=== PATIENT | female | born 1980 | race Caucasian/White ===

== ENCOUNTER 2020-08-09 14:33 | Outpatient (REF) | payer OTHER, SELFPAY ==
[2020-08-09 17:21] LABS: COVID-19 Test Negative (Negative)
== END 2020-08-09 14:34 | disposition home or self-care (01) ==
LOC: HO.LAB 14:33
PROVIDERS: Visit Provider Internal Medicine
DX: Z20.828 Contact with and (suspected) exposure to other viral communicable diseases (principal)
CPT/HCPCS: 87635

== ENCOUNTER 2020-08-22 06:33 | Outpatient (REF) | payer BC, SELFPAY ==
[2020-08-22 06:56] LABS: COVID-19 Test Negative (Negative)
== END 2020-08-22 06:34 | disposition home or self-care (01) ==
LOC: HO.LAB 06:33
PROVIDERS: Visit Provider Internal Medicine
DX: Z20.828 Contact with and (suspected) exposure to other viral communicable diseases (principal)
CPT/HCPCS: 87635; C9803

== ENCOUNTER → 2021-04-01 10:21 | Outpatient (BNVA) | payer BC, SELFPAY | PROVIDERS: Visit Provider Surgery Vascular Surgery ==

== ENCOUNTER 2021-04-09 07:50 | Outpatient (REF) | payer BC, SELFPAY ==
--- NOTE | ~2021-04-09 | US_ITS ---
EXAMINATION: US VENOUS BILATERAL LOWER EXTREMITIES (REFLUX EXAM) CLINICAL INDICATION: Leg pain and varicose veins. Status post ablation 10 years ago. COMPARISON: None TECHNIQUE: Color flow triplex imaging and compression Doppler was performed to evaluate both the deep and the superficial systems bilaterally. To evaluate the superficial system, the examination was performed in the upright position. Color-flow Doppler ultrasound and compression ultrasound were utilized. In addition, maneuvers were utilized to demonstrate reflux. FINDINGS: 1. DEEP VENOUS ULTRASOUND OF THE RIGHT LOWER EXTREMITY: Respiratory variation, normal compression and augmented flow are noted in the right common femoral vein as well as the right popliteal vein and there is no evidence of deep venous thrombosis at these locations. Reflux is noted in the right common femoral vein with greater than 3 seconds of reflux. Reflux is also present in the popliteal vein for 2.1 seconds. There is no evidence of a Quijano's cyst. 2. SUPERFICIAL ULTRASOUND WITH DOPPLER OF RIGHT LOWER EXTREMITY: The right great saphenous vein at the saphenofemoral junction measures 1.0 mm. The great saphenous vein is not seen again. At the level of the where measurements are as follows: at the knee 6 mm, [id number] 8 mm, midcalf 3 mm and at the ankle measures 2 mm. There is no reflux demonstrated in the right great saphenous vein. Duplicated Right Great Saphenous Vein: None The right small saphenous vein measures 10 mm and and demonstrates reflux of 1.3 seconds Accessory Vein of Giacomini: Yes, 5 mm in diameter without reflux Incompetent Perforators: None. There is a nonrefluxing 2 mm mid calf python architect Varices Present: Varicosities are present measuring up to 4 mm in size with reflux times of over 3 seconds 3. DEEP VENOUS ULTRASOUND OF THE LEFT LOWER EXTREMITY: Respiratory variation, normal compression and augmented flow are noted in the left common femoral vein as well as the left popliteal vein and there is no evidence of deep venous thrombosis at these locations. There is no evidence of reflux in the deep system in either the common femoral vein or the popliteal vein. There is no evidence of a Quijano's cyst. 4. SUPERFICIAL ULTRASOUND WITH DOPPLER OF LEFT LOWER EXTREMITY: Left great saphenous vein at the saphenofemoral junction measures 6 mm, at the proximal thigh 4 mm. The great saphenous vein is not seen below this level. There is no reflux demonstrated in the remaining left great saphenous vein from the thigh to the junction. Duplicated Left Great Saphenous Vein: There is a 5 mm lateral accessory saphenous that demonstrates 1.6 seconds of reflux The left small saphenous vein measures 3 mm and shows no reflux. Accessory Vein of Giacomini: None Incompetent Perforators: None. Varices Present: None US/US venous duplex LE BI IMPRESSION: 1. Reflux is present in the deep venous system on the right both common femoral as well as the popliteal vein as described above 2. Status post bilateral great saphenous ablations. Residual saphenous vein is noted on the right from the knee level downwards which demonstrates gross reflux. 3. Junctional reflux in the right small saphenous vein with associated refluxing varices
== END 2021-04-09 07:51 | disposition home or self-care (01) ==
LOC: HO.US 07:50
PROVIDERS: PCP Nurse Practitioner Adult Health; Visit Provider Surgery Vascular Surgery
DX: I83.893 Varicose veins of bilateral lower extremities with other complications (principal)
CPT/HCPCS: 93970

== ENCOUNTER → 2021-04-15 13:42 | Outpatient (BNVA) | payer BC, SELFPAY | PROVIDERS: PCP Nurse Practitioner Adult Health; Visit Provider Surgery Vascular Surgery ==

== ENCOUNTER → 2021-05-02 10:38 | Outpatient (BNVA) | payer BC, SELFPAY | PROVIDERS: PCP Nurse Practitioner Adult Health; Visit Provider Surgery Vascular Surgery | DX: I83.11 Varicose veins of right lower extremity with inflammation (principal) | CPT/HCPCS: 36482 ==

== ENCOUNTER 2021-05-05 12:25 | Outpatient (REF) | payer BC, SELFPAY ==
--- NOTE | ~2021-05-05 | US_ITS ---
EXAMINATION: US VENOUS ULTRASOUND WITH DOPPLER LOWER EXTREMITY, RIGHT CLINICAL INFORMATION: Post venous procedure COMPARISON: None TECHNIQUE: Ultrasound of the deep veins is performed from the hip to the calf with compression sonography and color and pulse Doppler assessment. Spectral analysis with color-flow imaging is performed. FINDINGS: There is normal venous compression and respiratory variation and augmented flow in the deep veins. The visualized common femoral vein, superficial femoral vein, profunda femoral vein, popliteal vein, and the trifurcation region shows no evidence of deep venous thrombosis. There are postprocedure changes to the greater saphenous vein with echogenic material extending 2 cm from the saphenofemoral junction. The greater saphenous vein is occluded in the thigh and proximal calf. US/US venous duplex LE RT IMPRESSION: No DVT demonstrated in the right lower extremity. Postprocedural changes to the greater saphenous vein.
== END 2021-05-05 12:26 | disposition home or self-care (01) ==
LOC: HO.US 12:25
PROVIDERS: Visit Provider Surgery Vascular Surgery
DX: M79.604 Pain in right leg (principal)
CPT/HCPCS: 93971

== ENCOUNTER → 2021-05-15 09:31 | Outpatient (BNVA) | payer BC, SELFPAY | PROVIDERS: PCP Nurse Practitioner Adult Health; Visit Provider Surgery Vascular Surgery ==

== ENCOUNTER → 2021-06-03 10:24 | Outpatient (BNVA) | payer BC, SELFPAY | PROVIDERS: PCP Nurse Practitioner Adult Health; Referring Provider Nurse Practitioner Adult Health; Visit Provider Surgery Vascular Surgery ==

== ENCOUNTER → 2021-08-28 09:04 | Outpatient (BNVA) | payer BC, SELFPAY | PROVIDERS: PCP Nurse Practitioner Adult Health; Visit Provider Surgery Vascular Surgery ==

== ENCOUNTER → 2021-10-03 12:31 | Outpatient (BNVA) | payer BC, SELFPAY | PROVIDERS: PCP Nurse Practitioner Adult Health; Visit Provider Surgery Vascular Surgery | DX: I83.11 Varicose veins of right lower extremity with inflammation (principal) | CPT/HCPCS: 37765 ==

== ENCOUNTER → 2021-10-16 13:09 | Outpatient (BNVA) | payer BC, SELFPAY | PROVIDERS: PCP Nurse Practitioner Adult Health; Visit Provider Surgery Vascular Surgery ==

== ENCOUNTER 2022-07-08 07:55 | Outpatient (REF) | payer BC, SELFPAY ==
--- NOTE | ~2022-07-08 | US_ITS ---
EXAMINATION: US LOWER EXTREMITY (REFLUX EXAM), RIGHT CLINICAL INDICATION: Chronic venous insufficiency with varicose veins, status post prior ablation of the right great saphenous vein COMPARISON: Ultrasound from 05/05/2021 TECHNIQUE: Color flow triplex imaging and compression Doppler was performed to evaluate both the deep and the superficial systems of the right lower extremity. To evaluate the superficial system, the examination was performed in the upright position. Color-flow Doppler ultrasound and compression ultrasound were utilized. In addition, maneuvers were utilized to demonstrate reflux. FINDINGS: 1. DEEP VENOUS DOPPLER ULTRASOUND: Common Femoral Vein: Compressible, normal respiratory variation and augmented flow. Femoral Vein: Compressible, normal color flow and augmentation. Popliteal Vein: Compressible, normal augmentation. Deep Reflux: There is reflux in the mid superficial femoral vein measuring 2596 ms and within the popliteal vein measuring 1564 ms There is no evidence of a Quijano's cyst. 2. SUPERFICIAL VENOUS DOPPLER ULTRASOUND: GREAT SAPHENOUS VEIN: Saphenofemoral Junction: 0.8 cm; Reflux: 0 ms Proximal Thigh: 0.6 cm; Reflux: 0 ms Mid Thigh: Not visualized Above Knee: Not visualized At Knee: Not visualized Below Knee: 0.3 cm; Reflux: 3044 ms Mid Calf: 0.2 cm; Reflux: 0 ms Ankle: 0.2 cm; Reflux: 0 ms DUPLICATED MEDIAL GREAT SAPHENOUS VEIN: Diameter: None Imaged Reflux: NA DUPLICATED LATERAL GREAT SAPHENOUS VEIN: Diameter: None Imaged Reflux: NA SMALL SAPHENOUS VEIN: Proximal: 0.9 cm; Reflux: 2136 ms Distal: 0.2 cm; Reflux: 2812 ms VEIN OF GIACOMINI: None Imaged. PERFORATORS: Location: None Imaged Size: NA Reflux: NA VARICOSITIES: Location: Varicose vein arising from the great saphenous vein remnant in the proximal thigh which recanalizes into the great saphenous vein in the proximal calf Size: 0.4 cm Reflux: 7810-1008 ms US/US venous duplex LE RT IMPRESSION: Status post ablation with persistent closure of the great saphenous vein through the thigh. Large varicose vein is seen arising from the great saphenous vein remnant in the proximal thigh and extending throughout the thigh and into the calf. Severe reflux in the right small saphenous vein Moderate to severe deep venous reflux within the right superficial femoral vein and popliteal vein
== END 2022-07-08 07:56 | disposition home or self-care (01) ==
LOC: HO.US 07:55
PROVIDERS: Visit Provider Surgery Vascular Surgery
DX: I83.11 Varicose veins of right lower extremity with inflammation (principal)
CPT/HCPCS: 93971

== ENCOUNTER → 2022-11-13 10:26 | Outpatient (BNVA) | payer BC, SELFPAY | PROVIDERS: PCP Family Medicine; Visit Provider Surgery Vascular Surgery | DX: I83.11 Varicose veins of right lower extremity with inflammation (principal) | CPT/HCPCS: 36475 ==

== ENCOUNTER 2024-02-15 09:07 | Outpatient (AMB) | payer BC, SELFPAY ==
--- NOTE | 2024-02-15 09:10 | MHC.OFFVIS ---
Intake Visit Reasons: Right leg VV, s/p 11/13/22 right ssv rfa Intake Note: follow up Right LE VV s/p Right SSV RFA 11/13/23 (was not successful) Pt has some new large VV on her calf that is itching and causing swelling and discoloration. Pt states it's progressively gotten worse since last year. Accompanied by: Self / Same As Patient Allergies No Known Allergies Allergy (Verified 02/15/24 09:15) HPI HPI Right leg VV, s/p 11/13/22 right ssv rfa: Details: Very pleasant 44-year-old female presents for routine follow-up regarding right lower extremity varicose veins. She did have an attempted ablation at the right small saphenous vein. Unfortunately the vein at that time had gone into spasm. At the current time it continues to be a source of pain and discomfort for her. She now presents for routine follow-up. [facility] Medical History Varicose vein of leg Social History Patient Tobacco Use Status: Never used Tobacco Review of Systems Const Reports as per HPI ENT Reports no additional complaints Card Denies chest pain, Denies chest pain at rest and Denies chest pain with activity Resp Denies chest congestion and Denies cough GI Reports no additional complaints Musc Details: pain over varicosities, aching of lower extremities, swelling, cramping, heaviness and tiredness, itching Denies abnormal gait Skin/Breast Reports pruritus and Denies wounds Neuro Reports no additional complaints and Denies abnormal gait Psych Denies no additional complaints Physical Exam Const General: cooperative, healthy appearing and comfortable Orientation/consciousness: oriented to person, oriented to place and oriented to time Neck Carotids: no bruits Chest Chest palpation & inspection: normal inspection of the chest and normal palpation of entire chest wall Resp Effort & Inspection: normal respiratory effort and able to speak in complete sentences Cardio Rate: regular rate Heart sounds: S1 normal heart sound present and S2 normal heart sound present Peripheral pulses: Peripheral pulses 2+ throughout GI Inspection: Yes normal to inspection Skin Other: +2 edema, large rope-like varicosities greater than 4 mm right calf CEAP Classification C4 - skin color changes Ep - Etiology Primary As - superficial veins P - reflux General skin exam: dry skin Neuro General: oriented to person, oriented to place and oriented to time Extrem Right lower extremity: full ROM, normal capillary refill and edema Left lower extremity: full ROM, normal capillary refill and edema Psych Mental Status: mental status grossly normal Results Reviewed Results Reviewed: Brief summary of venous insufficiency testing is as follows: right great saphenous vein: negative right small saphenous vein: Positive right accessory vein: none present Please note there is no evidence of any venous aneurysms or significant tortuosity Assessment & Plan Assessment & Plan (1) Varicose veins of right lower extremity with inflammation: Code(s): I83.11 - Varicose veins of right lower extremity with inflammation Category: Medical Plan: This patient has varicose veins with inflammation. They continue to be a source of discomfort for the patient. The patient has tried conservative treatment with compression, leg elevation and exercise program for over 3 months time. They have been compliant with all treatment. This has provided minimal relief for the patient. I do not anticipate this course of treatment will alter the underlying etiology. The patient has been scheduled for lower extremity venous treatment inclusive of --- right small saphenous vein radiofrequency ablation. Risks, benefits, and complications of this procedure has been discussed in detail with the patient including but not limited to bleeding, infection, and the development of a DVT. The patient has demonstrated a clear understanding and has consented. We will schedule the patient as soon as possible. Thank you for allowing us to participate in this patient's care. If there are any questions or concerns please do not hesitate to contact us. Coding Level of Care Code Est Pt Level 4 (58018) Diagnoses Varicose veins of right lower extremity with inflammation I83.11
== END 2024-02-15 09:42 | disposition home or self-care (01) ==
PROVIDERS: PCP Family Medicine; Visit Provider Surgery Vascular Surgery
DX: I83.11 Varicose veins of right lower extremity with inflammation (principal)
CPT/HCPCS: 99213

== ENCOUNTER → 2024-02-15 09:07 | Outpatient (BNVA) | payer BC, SELFPAY | PROVIDERS: PCP Family Medicine; Visit Provider Surgery Vascular Surgery ==

== ENCOUNTER 2024-03-24 09:28 | Outpatient (AMB) | payer BC, SELFPAY ==
--- NOTE | 2024-03-24 09:48 | A.OFFVIS_ITS ---
Intake Visit Reasons: Right SSV RFA Accompanied by: Self / Same As Patient Allergies No Known Allergies Allergy (Verified 03/24/24 09:48) [facility] Medical History Varicose vein of leg Social History Patient Tobacco Use Status: Never used Tobacco Office Procedures Vascular Office Procedure Details Details: Diagnosis: Varicose veins with inflammation of right leg Procedure: Endovenous radiofrequency ablation of the right small saphenous vein(s) of the lower extremity. Anesthesia: Local infiltration 5 cc, Tumescent 200 cc. Estimated Blood Loss: Minimal Specimen: Varicose veins The patient was transferred to the procedure suite and the insufficient saphenous vein was mapped by ultrasound and diagrammed on the overlying skin. The depth and diameter of the vein(s) to be treated was documented. The varicose tributary veins and suitable access sites were identified and mapped as well. The patient was then positioned supine on the procedure table. The affected limb was prepped and draped in the usual sterile fashion. The RF catheter was placed on the sterile field, flushed and wiped down, prepared, and connected by a sterile cable. The patient was placed in prone position and local anesthesia was instilled in the skin overlying the access site. A skin incision was made overlying the identified and mapped great saphenous vein entry site. The vein was accessed using ultrasound guidance and the Seldinger technique, a guide wire was introduced through the needle, which was then exchanged over the guide wire for a 7F sheath, which was secured in place. The guide wire was removed and the sheath was flushed. The RF catheter was placed into the vein through the sheath and preferentially, imaging was used to place the catheter tip just inferior to the superficial epigastric vein to preserve normal physiological flow in that vein. Additionally, it was confirmed by ultrasound guidance that the catheter tip was also placed a minimum of 1.5cm distal to the sapheno popliteal junction. After the RF catheter position was verified by ultrasound, tumescent anesthesia was infiltrated, under ultrasound guidance, precisely into the perivenous compartment along the entire length of vein from the entry site to the sapheno popliteal junction until a halo of fluid was noted around the vein. After RF catheter position was again confirmed with ultrasound imaging, and under direct external compression along the length of the heating element, RF energy was applied. The vein was segmentally ablated by heating a 3 cm segment and then indexing the catheter forward by 2.5 cm until the treatment length is completed. Device temperature was maintained at 120 plus or minus 5 degrees C with an initial power level of 40W dropping to below 20W for each treatment. Total vein length treated 10 cm Total cycles of RF 6. Repeat ultrasound of the small saphenous vein was performed, confirming successful treatment. The catheter and sheath were withdrawn and hemostasis established with direct pressure. After assuring hemostasis, the skin incision over the small saphenous vein was closed with a bandage and a compression wrap, and/ or graduated compression stocking was applied from the level of the foot to the most proximal level of the thigh. 96841 - Endovenous RF, 1st Vein All charges added?: Procedure code (CPT) selection complete Assessment & Plan Assessment & Plan (1) Varicose veins of right lower extremity with inflammation: Comment: 03/24/2024 - right small saphenous vein radiofrequency ablation Code(s): I83.11 - Varicose veins of right lower extremity with inflammation Category: Medical Plan: See op note Coding Level of Care Code Procedure Only Diagnoses Varicose veins of right lower extremity with inflammation I83.11 CPT Codes Details - Vascular 1: 54696 - Endovenous RF, 1st Vein ([id number])
== END 2024-03-24 12:07 | disposition home or self-care (01) ==
PROVIDERS: PCP Family Medicine; Visit Provider Surgery Vascular Surgery
DX: I83.11 Varicose veins of right lower extremity with inflammation (principal)
CPT/HCPCS: 36475

== ENCOUNTER → 2024-03-24 09:28 | Outpatient (BNVA) | payer BC, SELFPAY | PROVIDERS: PCP Family Medicine; Visit Provider Surgery Vascular Surgery | DX: I83.11 Varicose veins of right lower extremity with inflammation (principal) | CPT/HCPCS: 36475 ==

== ENCOUNTER 2024-03-27 07:22 | Outpatient (REF) | payer BC, SELFPAY ==
--- NOTE | ~2024-03-27 | US_ITS ---
EXAMINATION: TRIPLEX SCANNING OF RIGHT LOWER EXTREMITY; SUPERFICIAL ULTRASOUND WITH DOPPLER OF RIGHT LOWER EXTREMITY CLINICAL INFORMATION: Status post RF ablation of the right saphenous vein , originally performed on 03/24/2024. COMPARISON: Preprocedure studies. TECHNIQUE: Color flow triplex imaging and compression Doppler were performed as well as superficial ultrasound with Doppler. FINDINGS: TRIPLEX SCANNING OF RIGHT LOWER EXTREMITY: Respiratory variation, normal compression and augmented flow are noted throughout the lower extremity. The visualized common femoral vein, femoral vein, profunda femoral vein, popliteal vein and the calf veins show no evidence of deep venous thrombosis. There is no evidence of Quijano's cyst. SUPERFICIAL ULTRASOUND WITH DOPPLER OF RIGHT LOWER EXTREMITY: The right small saphenous vein is occluded from the access site to 3.9 cm from the sapheno-popliteal junction. There is no extension of thrombus into the deep system. US/US venous duplex LE RT IMPRESSION: 1. Normal triplex scan of the right without evidence of deep venous thrombosis. 2. Excellent appearance status post ablation of the right small saphenous vein.
== END 2024-03-27 07:23 | disposition home or self-care (01) ==
LOC: HO.US 07:22
PROVIDERS: PCP Registered Nurse; Visit Provider Surgery Vascular Surgery
DX: M79.604 Pain in right leg (principal)
CPT/HCPCS: 93971

== ENCOUNTER 2024-05-02 09:03 | Outpatient (AMB) | payer BC, SELFPAY ==
--- NOTE | 2024-05-02 09:06 | MHC.OFFVIS ---
Intake Visit Reasons: 2 week follow up Right SSV RFA 03/17/24 Intake Note: Patient presents for follow up right ssv rfa performed on 03/17. No complaints. Allergies No Known Allergies Allergy (Verified 05/02/24 09:07) [facility] [place] 2 week follow up Right SSV RFA 03/17/24: Details: Very pleasant 44-year-old female presents for follow-up regarding right small saphenous vein ablation. She reports in general her leg does feel better. She does have some small superficial varicosities in particular in the ankle and posterior calf that have been a source of discomfort for her. She has been using compression which has been providing relief. 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 She now presents for postprocedure follow-up. Of note ultrasound was negative for DVT. [facility] Medical History Varicose vein of leg Social History Patient Tobacco Use Status: Never used Tobacco Review of Systems Const Reports as per HPI ENT Reports no additional complaints Card Denies chest pain, Denies chest pain at rest and Denies chest pain with activity Resp Denies chest congestion and Denies cough GI Reports no additional complaints Musc Details: pain over varicosities, aching of lower extremities, swelling, cramping, heaviness and tiredness, itching Denies abnormal gait Skin/Breast Reports pruritus and Denies wounds Neuro Reports no additional complaints and Denies abnormal gait Psych Denies no additional complaints Physical Exam Const General: cooperative, healthy appearing and comfortable Orientation/consciousness: oriented to person, oriented to place and oriented to time Neck Carotids: no bruits Chest Chest palpation & inspection: normal inspection of the chest and normal palpation of entire chest wall Resp Effort & Inspection: normal respiratory effort and able to speak in complete sentences Cardio Rate: regular rate Heart sounds: S1 normal heart sound present and S2 normal heart sound present Peripheral pulses: Peripheral pulses 2+ throughout GI Inspection: Yes normal to inspection Skin Other: +2 edema, large rope-like varicosities greater than 4 mm right ankle and posterior calf CEAP Classification C4 - skin color changes Ep - Etiology Primary As - superficial veins P - reflux General skin exam: dry skin Neuro General: oriented to person, oriented to place and oriented to time Extrem Right lower extremity: full ROM, normal capillary refill and edema Left lower extremity: full ROM, normal capillary refill and edema Psych Mental Status: mental status grossly normal Assessment & Plan Assessment & Plan (1) Varicose veins of right lower extremity with inflammation: Comment: 03/24/2024 - right small saphenous vein radiofrequency ablation Code(s): I83.11 - Varicose veins of right lower extremity with inflammation Category: Medical Plan: In short patient has done well status post right small saphenous vein venous ablation. She does have some varicosities that may need a microphlebectomy in the future. We will manage this conservatively over the next 3 months. We did discuss routine conservative measures including compression elevation and exercise. She will follow up with us once again in 3 months time. Thank you for allowing us to participate in her care. Coding Level of Care Code Est Pt Level 3 (69092) Diagnoses Varicose veins of right lower extremity with inflammation I83.11
== END 2024-05-02 09:49 | disposition home or self-care (01) ==
PROVIDERS: PCP Family Medicine; Visit Provider Surgery Vascular Surgery
DX: I83.11 Varicose veins of right lower extremity with inflammation (principal)
CPT/HCPCS: 99213

== ENCOUNTER → 2024-05-02 09:03 | Outpatient (BNVA) | payer BC, SELFPAY | PROVIDERS: PCP Family Medicine; Visit Provider Surgery Vascular Surgery ==

== ENCOUNTER 2024-08-03 08:49 | Outpatient (AMB) | payer BC, SELFPAY ==
--- NOTE | 2024-08-03 08:52 | A.OFFVIS_ITS ---
Intake Visit Reasons: 3 month vein check Intake Note: 3 mo follow up vein check s/p Right SSV RFA 03/17/24. Pt states she has one large VV that wraps around pretibial area from the knee to the ankle and a cluster near her Right ankle. Worse when standing. Accompanied by: Self / Same As Patient Allergies No Known Allergies Allergy (Verified 08/03/24 08:57) HPI HPI 3 month vein check: Details: Very pleasant 44-year-old female presents for follow-up regarding venous disease. She most recently noticed a right pretibial varicosity which has been a source of pain and discomfort for her. In general she has been doing fairly well and has had prior right small saphenous vein ablation done back in March of 2024, and of note she had prior bilateral saphenous vein ablation is by Dr. Doyle. She reports she has been doing extremely well in terms of that. She now presents for routine follow-up evaluation. [facility] Medical History Varicose vein of leg Social History Patient Tobacco Use Status: Never used Tobacco Review of Systems Const Reports as per HPI ENT Reports no additional complaints Card Denies chest pain, Denies chest pain at rest and Denies chest pain with activity Resp Denies chest congestion and Denies cough GI Reports no additional complaints Musc Details: pain over varicosities, aching of lower extremities, swelling, cramping, heaviness and tiredness, itching Denies abnormal gait Skin/Breast Reports pruritus and Denies wounds Neuro Reports no additional complaints and Denies abnormal gait Psych Denies no additional complaints Physical Exam Const General: cooperative, healthy appearing and comfortable Orientation/consciousness: oriented to person, oriented to place and oriented to time Neck Carotids: no bruits Chest Chest palpation & inspection: normal inspection of the chest and normal palpation of entire chest wall Resp Effort & Inspection: normal respiratory effort and able to speak in complete sentences Cardio Rate: regular rate Heart sounds: S1 normal heart sound present and S2 normal heart sound present Peripheral pulses: Peripheral pulses 2+ throughout GI Inspection: Yes normal to inspection Skin Other: +2 edema, large rope-like varicosities greater than 4 mm right pretibial surface CEAP Classification C4 - skin color changes Ep - Etiology Primary As - superficial veins P - reflux General skin exam: dry skin Neuro General: oriented to person, oriented to place and oriented to time Extrem Right lower extremity: full ROM, normal capillary refill and edema Left lower extremity: full ROM, normal capillary refill and edema Psych Mental Status: mental status grossly normal Assessment & Plan Assessment & Plan (1) Varicose veins of right lower extremity with inflammation: Comment: 03/24/2024 - right small saphenous vein radiofrequency ablation Code(s): I83.11 - Varicose veins of right lower extremity with inflammation Category: Medical Plan: In short she does have a large pretibial varicosity. It does appear amenable to microphlebectomy. At the current time she would like to manage this conservatively with compression stockings. 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 We did discuss other conservative measures including elevation and exercise. She will follow up with us on an as-needed basis. Thank you for allowing us to assist in her care. If there are any questions or concerns please do not hesitate to contact us. Coding Level of Care Code Est Pt Level 3 (50280) Diagnoses Varicose veins of right lower extremity with inflammation I83.11
== END 2024-08-03 09:13 | disposition home or self-care (01) ==
PROVIDERS: PCP Family Medicine; Visit Provider Surgery Vascular Surgery
DX: I83.11 Varicose veins of right lower extremity with inflammation (principal)
CPT/HCPCS: 99213

== ENCOUNTER → 2024-08-03 08:49 | Outpatient (BNVA) | payer BC, SELFPAY | PROVIDERS: PCP Family Medicine; Visit Provider Surgery Vascular Surgery ==